=== PATIENT | female | born 1990 | race Caucasian/White ===

== ENCOUNTER → 2016-07-28 | Outpatient (CLI) | payer OTHER ==
--- NOTE | 2016-07-28 13:38 | REP ---
PELVIC ULTRASOUND: Real-time sonographic evaluation of the pelvis is performed utilizing transabdominal and endovaginal technique. The bladder measures 5.6 x 3.3 x 6.8 cm. The uterus measures 9.0 x 4.1 x 5.8 cm. The endometrial stripe measures 7 mm. There is no endometrial fluid collection. The right ovary measures 5.1 x 2.0 x 2.9 cm and the left ovary is 3.3 x 2.3 x 2.3 cm. There is no adnexa mass or free fluid. Blood flow is seen in the ovaries with duplex Doppler evaluation, with no torsion. IMPRESSION: Essentially negative pelvic ultrasound. Signed by Angel Crowder MD 07/28/2016 05:25 P
== END | disposition home or self-care (01) ==
LOC: M LRY 12:00
PROVIDERS: ATTEND Family Medicine
DX: R10.2 Pelvic and perineal pain (principal)
CPT/HCPCS: 76830; 76856; 81001; 93976; G0463

== ENCOUNTER → 2016-07-28 | Outpatient (REF) | payer OTHER | END | disposition home or self-care (01) | LOC: M SFHCLERA 13:52 | PROVIDERS: ATTEND Family Medicine | DX: R10.2 Pelvic and perineal pain (principal) ==

== ENCOUNTER → 2016-08-05 | Outpatient (CLI) | payer OTHER ==
--- NOTE | 2016-08-07 08:29 | REP ---
MRI STUDY OF THE RIGHT SHOULDER WITHOUT CONTRAST: HISTORY: Right anterior shoulder pain. The patient reports previous rotator cuff surgery in 2012. No comparison imaging. TECHNIQUE: Axial, oblique coronal, and oblique sagittal imaging planes are utilized for T1, proton density and T2-weighted scans obtained in the usual fashion with and without fat saturation. MRI FINDINGS: There is some magnetic field susceptibility artifact at the anterosuperior aspect of the right glenohumeral articulation on modified gradient echo T2-weighted scans. There is diffuse swelling and increased signal intensity in the distal supraspinatus tendon consistent with tendonitis tendinosis change. There is a moderate to large subacromial subdeltoid bursal effusion. No significant glenohumeral joint effusion is seen. The glenohumeral and acromioclavicular joints are normally aligned. Cortical and medullary bone signal intensity are normal. The infraspinatus, subscapularis, and biceps tendons are intact. There is some tendinosis change in the distal subscapularis tendon. No cartilaginous labral tear is appreciated. There is no focal T2 signal intensity in the supraspinatus tendon to suggest a supraspinatus cuff tear. No juxta-articular cyst or mass is seen. IMPRESSION: Subacromial subdeltoid bursal effusion. Postoperative changes in the region of the distal supraspinatus tendon. Tendonitis tendinosis change in the supraspinatus and subscapularis tendons. No focal cuff tear seen. Signed by Francisco Javier Dee MD 08/07/2016 01:33 P
== END | disposition home or self-care (01) ==
LOC: M RAD 09:13
PROVIDERS: ATTEND Family Medicine
DX: M25.411 Effusion, right shoulder (principal); M75.81 Other shoulder lesions, right shoulder

== ENCOUNTER → 2016-11-20 | Outpatient (REF) | payer OTHER ==
[2016-11-20 17:21] LABS: CONTROL LINE HCG INT CTR LINE PRESENT
== END ==
LOC: M SFHCLERA 14:15
PROVIDERS: ATTEND Family Medicine
DX: N92.6 Irregular menstruation, unspecified (principal)
CPT/HCPCS: 84703; G0463

== ENCOUNTER → 2016-12-25 | Outpatient (REF) | payer OTHER ==
[2016-12-25 17:13] LABS: ALBUMIN/GLOBULIN RATIO 1.08 (1.00-1.93); ALKALINE PHOSPHATASE 88 U/L (45-117); ALT/SGPT 93 U/L (12-78); ANION GAP 7 MEQ/L (8-16); AST/SGOT 50 U/L (15-37); BILIRUBIN,TOTAL 0.5 MG/DL (0.2-1.0); BLOOD UREA NITROGEN 10 MG/DL (7-18); CALCIUM LEVEL 9.2 MG/DL (8.5-10.1); CARBON DIOXIDE LEVEL 28 MEQ/L (21-32); CHLORIDE LEVEL 103 MEQ/L (98-107); FREE T4 0.93 NG/DL (0.76-1.46); GLOMERULAR FILTRATION RATE > 60.0 (>60); GLUCOSE, FASTING 82 MG/DL (70-105); POTASSIUM SERUM 4.3 MEQ/L (3.5-5.1); SODIUM LEVEL 138 MEQ/L (136-145); TOTAL PROTEIN 7.7 GM/DL (6.4-8.2)
[2016-12-25 18:11] LABS: PROLACTIN 3.5 NG/ML
[2016-12-25 19:06] LABS: BASO % 0.4 % (0.0-1.0); EOS # 0.1 K/mm3 (0.0-0.50); EOS % 0.7 % (0.0-3.0); LARGE UNSTAINED CELL # 0.1 K/mm3 (0.0-0.4); LARGE UNSTAINED CELL % 1.1 % (0.0-4.0); LYMPH # 2.2 K/mm3 (1.5-6.5); MEAN CORPUSCULAR HEMOGLOBIN 31.5 pg (27.0-33.0); MEAN CORPUSCULAR HGB CONC 33.8 g/dl (32.0-36.5); MEAN CORPUSCULAR VOLUME 93.1 fl (80.0-96.0); MONO # 0.5 K/mm3 (0.0-0.8); MONO % 4.8 % (0.0-5.0); NEUTROPHILS # 6.6 K/mm3 (1.8-7.7); PLATELET COUNT, AUTOMATED 290 k/mm3 (150-450); RED CELL DISTRIBUTION WIDTH 12.1 % (11.5-14.5); WHITE BLOOD COUNT 9.4 K/mm3 (4.0-10.0)
== END ==
LOC: M SFHCLERA 11:17
PROVIDERS: ATTEND Family Medicine
DX: R60.9 Edema, unspecified (principal)
CPT/HCPCS: 80053; 83036; 84146; 84439; 84443; 85025; G0463

== ENCOUNTER → 2017-01-10 | Outpatient (REF) | payer OTHER ==
[2017-01-10 14:01] LABS: ALBUMIN 4.1 GM/DL (3.2-5.2); ALBUMIN/GLOBULIN RATIO 1.05 (1.00-1.93); ALKALINE PHOSPHATASE 86 U/L (45-117); ALT/SGPT 70 U/L (12-78); AST/SGOT 37 U/L (15-37); BILIRUBIN,DIRECT 0.1 MG/DL (0.0-0.2); BILIRUBIN,TOTAL 0.5 MG/DL (0.2-1.0)
== END ==
LOC: M SFHCLERA 08:13
PROVIDERS: ATTEND Family Medicine
DX: R79.89 Other specified abnormal findings of blood chemistry (principal)